=== PATIENT | male | born 1975 | race Caucasian/White ===

== ENCOUNTER → 2021-01-22 | Outpatient (CLI) | payer BC ==
--- NOTE | 2021-01-22 09:12 | US ---
EXAMINATION TYPE: US abdomen complete DATE OF EXAM: 01/22/2021 COMPARISON: NONE CLINICAL HISTORY: R10.13 Epigastric pain R14.0 Abdominal distension. Epigastric pain for the past yea r but increasing over the past year. EXAM MEASUREMENTS: Liver Length: 16.8 cm Gallbladder Wall: 0.2 cm CBD: 0.3 cm Spleen: 13.6 x 4.8 cm Right Kidney: 11.2 x 6.1 x 5.8 cm Left Kidney: 11.8 x 6.1 x 6.0 cm Pancreas: Obscured by bowel gas Liver: Increased attenuation, decreased visualization of vessels suggestive of fatty infiltrate Gallbladder: No stones seen Evidence for sonographic Crowley's sign: No CBD: wnl Spleen: Upper limits in size Right Kidney: No hydronephrosis or masses seen Left Kidney: No hydronephrosis or masses seen Upper IVC: wnl Abd Aorta: wnl Limited exam due to patient body habitus and bowel gas. The visualized liver is heterogeneously hyperechoic. Evaluation for focal masses suboptimal due to t he heterogeneity. The intrahepatic portion of the IVC and proximal, mid, and distal abdominal aorta a re within normal limits. There is no evidence of shadowing mobile cholelithiasis. Common bile duct is unremarkable. Suboptimal evaluation of pancreas on the initial images saved.. The spleen is upper limits of normal in size. Kidneys are symmetric and free of hydronephrosis. No renal lesions are s een on images saved. IMPRESSION: Suboptimal study. Heterogeneous hyperechoic appearance of liver could reflect product of diffuse fatty infiltration and/or underlying hepatocellular disease. Correlate clinically. No intra-a bdominal ascites. No acute findings are evident.
--- NOTE | 2021-01-22 10:08 | FL ---
EXAMINATION TYPE: FL UGI DATE OF EXAM: 01/22/2021 COMPARISON: NONE HISTORY: Abdominal distention and bloating with reflux. TECHNIQUE: A double contrast UGI study is performed. A total of 46 seconds of fluoroscopic time was utilized during procedure and 53 images obtained. 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 The esophagus shows normal motility and emptying into the stomach. No evidence of fixed hiatal herni a or stricture noted. The stomach shows normal distensibility, peristalsis, and mucosal folds. No evidence of any mass or focal ulcer disease. Mild gastroesophageal reflux into distal esophagus during real-time scanning. There is a small diverticulum along the mesenteric surface of the second portion of duodenum. The pro ximal small bowel loops are unremarkable. IMPRESSION: Mild distal gastroesophageal reflux. No focal ulcer disease.
== END | disposition home or self-care (01) ==
LOC: RADUSWWP 07:55
PROVIDERS: ATTEND Family Medicine
DX: K21.9 Gastro-esophageal reflux disease without esophagitis (principal)
CPT/HCPCS: 74240; 76700

== ENCOUNTER → 2021-02-08 | Outpatient (CLI) | payer BC ==
--- NOTE | 2021-02-08 14:17 | NM ---
EXAMINATION TYPE: NM hepatobiliary w EF DATE OF EXAM: 02/08/2021 COMPARISON: Ultrasound abdomen January 22, 2021 HISTORY: Abdominal distention. Epigastric pain with heartburn and reflux per patient. TECHNIQUE: After the intravenous administration of 5 mCi Tc 99m Mebrofenin hepatobiliary scintigraphy is performed. Immediate images post injection. FINDINGS: There is satisfactory initial accumulation of tracer by the liver. The gallbladder is visualized wit hin 20 minutes. The small bowel activity is noted within 30 minutes. At one hour 8 ounces of oral e nsure plus is given to mimic CCK and gallbladder ejection fraction is calculated at 87 %, not diminis hed from the normal range. Therefore there is no scintigraphic evidence of cystic or common bile betsy t obstruction to suggest acute cholecystitis or gallbladder dyskinesia. IMPRESSION: Ejection fraction is 87%, not diminished from the normal range.
== END | disposition home or self-care (01) ==
LOC: RADNMMAIN 07:04
PROVIDERS: ATTEND Family Medicine
DX: K21.9 Gastro-esophageal reflux disease without esophagitis (principal)
CPT/HCPCS: 78226; A9537

== ENCOUNTER 2021-03-14 08:33 | Day surgery (SDC) | payer BC ==
[2021-03-13 08:25] VITALS: BMI 31.1
[~2021-03-14 08:33] MED LIST: LACTATED RINGERS 1,000 ML IV SCH; LIDOCAINE 1% (10MG/ML) FOR IV START INTRADERMA PRN
[2021-03-14 09:19] VITALS: TEMP 98.8
--- NOTE | 2021-03-14 10:07 | P.GSHP ---
History of Present Illness H&P Date: 03/14/21 Chief Complaint: Family history colonic Cancer Is a 45-year-old male who presents today for colonoscopy. Patient has a strong family history of colon cancer. He presents today for colonoscopy. He denies any significant check points. Past Medical History Additional Past Medical History / Comment(s): change in bowel habits. family hx colon cancer History of Any Multi-Drug Resistant Organisms: None Reported Past Surgical History: No Surgical Hx Reported Additional Past Surgical History / Comment(s): no prior surgical or anesthesia hx Past Anesthesia/Blood Transfusion Reactions: No Reported Reaction Smoking Status: Former smoker - Past Family History Mother Family Medical History: Cancer Additional Family Medical History / Comment(s): colon. grandmother also had colon cancer Medications and Allergies Home Medications Medication Instructions Recorded Confirmed Type No Known Home Medications 03/13/21 03/14/21 History Allergies Allergy/AdvReac Type Severity Reaction Status Date / Time levofloxacin [From Levaquin] Allergy body felt Verified 03/14/21 08:58 like it was on fire, pin and needles Sulfa (Sulfonamide Allergy Swelling Verified 03/14/21 08:58 Antibiotics) Surgical - Exam Vital Signs Temp Pulse Resp BP Pulse Ox 98.8 F 76 18 140/84 98 03/14/21 09:16 03/14/21 09:16 03/14/21 09:16 03/14/21 09:16 03/14/21 09:16 - General well developed, well nourished, no distress - Eyes PERRL - ENT normal pinna - Neck no masses - Respiratory normal expansion - Cardiovascular Rhythm: regular - Abdomen Abdomen: soft, non tender Assessment and Plan Assessment: Family history: Cancer. We'll perform initial screening colonoscopy.
[2021-03-14] MEDS ORDERED: PROPOFOL 10 MG/ML 20 ML VIAL IV ONE (10:15)
--- NOTE | 2021-03-14 10:37 | P.OP ---
Date of Procedure: 03/14/21 Preoperative Diagnosis: Family history of colon cancer Postoperative Diagnosis: Diverticulosis Sigmoid colon polyp Rectal polyp Procedure(s) Performed: Colonoscopy Anesthesia: MAC Surgeon: Bhaskar Dolan Pathology: other (Sigmoid colon polyp, rectal polyp) Condition: stable Disposition: PACU Description of Procedure: The patient's placed on the endoscopy table in the lateral position. Seed IV sedation. Digital rectal exam was performed which revealed no abnormalities. Flexible colonoscope was then placed patient anus and passed throughout the entire colon. The ileocecal valve was visually. The cecum, ascending and transverse colon appeared normal. In the descending colon there was scattered diverticula. In the sigmoid colon there is more diverticular changes seen. There is also a polyp seen was removed with the snare forcep. Scope was then brought back the rectum and another polyp was seen through with the cold forcep. A second polyp was seen removed with the snare. The patient then had the scope withdrawn.
[2021-03-14 10:38] VITALS: RESP 16
[2021-03-14 10:49] VITALS: BP 131/81; PULSE 75
== END 2021-03-14 11:15 | disposition home or self-care (01) ==
LOC: ORWHC2ENDO 08:33
PROVIDERS: ATTEND Surgery
DX: Z12.11 Encounter for screening for malignant neoplasm of colon (principal); D12.8 Benign neoplasm of rectum; K63.5 Polyp of colon; K62.1 Rectal polyp; K57.30 Diverticulosis of large intestine without perforation or abscess without bleeding; K21.9 Gastro-esophageal reflux disease without esophagitis; Z80.0 Family history of malignant neoplasm of digestive organs; Z87.891 Personal history of nicotine dependence; Z88.1 Allergy status to other antibiotic agents; Z88.2 Allergy status to sulfonamides
CPT/HCPCS: 88305; 45380; 45385; J2704